=== PATIENT | male | born 1970 | race Two or more races ===

== ENCOUNTER 2017-01-20 19:52 | Inpatient (IN) | payer BC, OTHER ==
[~2017-01-20] VITALS: Ht 170.2 cm; Wt 102.9 kg
[2017-01-20] MEDS ORDERED: ROSU10TA PO (20:35)
[2017-01-20] MEDS ORDERED: ONDANSETRON 2MG/ML, 2ML IVPush ONE (21:00)
[2017-01-20] MEDS ORDERED: morphine SULFATE 10 MG/ML, 1ML IVPush PRN (21:00)
[2017-01-20] MEDS ORDERED: SODIUM CHLORIDE FLUSH 10ML SYR IVF ONE (21:00)
[2017-01-20] MEDS ORDERED: SODIUM CHLORIDE 0.9% 1,000ML IVBOLUS ONE (21:00)
[2017-01-20 21:04] LABS: HEMATOCRIT 44.7 % (39.2-51.8); WHITE BLOOD COUNT 7.5 x10^3/uL (3.4-10)
[2017-01-20 21:09] LABS: IS PT STATUS REG ER OR PRE ER? YES
[2017-01-20 21:19] LABS: ASPARTATE AMINO TRANSFERASE 25 U/L (15-37); BLOOD UREA NITROGEN 21 mg/dL (7-18)
[2017-01-20] MEDS ORDERED: morphine SULFATE 10 MG/ML, 1ML ONE (21:49)
[2017-01-20] MEDS ORDERED: ONDANSETRON 2MG/ML, 2ML ONE (21:49)
[2017-01-20] MEDS ORDERED: SODIUM CHLORIDE 0.9% 1,000 ML IV ONE (23:06)
[2017-01-20] MEDS ORDERED: SODIUM CHLORIDE FLUSH 10ML SYR IVF PRN (23:30)
[2017-01-20] MEDS ORDERED: ONDANSETRON 2MG/ML, 2ML IVPush PRN (23:30)
[2017-01-20] MEDS ORDERED: HYDROmorphone 1 MG/ML, 1ML IVPush PRN (23:30)
[2017-01-21] MEDS ORDERED: ONDANSETRON 2MG/ML, 2ML ONE (00:22)
[2017-01-21] MEDS ORDERED: HYDROmorphone 2 MG/ML, 1ML ONE (00:22)
[2017-01-21 00:49] VITALS: BP 105/69
[2017-01-21 00:51] VITALS: BP 105/69
[2017-01-21] MEDS: SODIUM CHLORIDE 0.9% 1,000 ML IV SCH ×3 (02:56→18:18)
[2017-01-21] MEDS ORDERED: morphine SULFATE 10 MG/ML, 1ML IVPush PRN (03:00)
[2017-01-21] MEDS ORDERED: ONDANSETRON 2MG/ML, 2ML IVPush PRN (03:00)
[2017-01-21 03:02] LABS: IS PT STATUS REG ER OR PRE ER? NO
[2017-01-21 06:59] VITALS: BP 93/58
[2017-01-21 09:08] LABS: IS PT STATUS REG ER OR PRE ER? NO
[2017-01-21 12:37] VITALS: BP 93/55
[2017-01-21 20:24] VITALS: BP 116/65
[2017-01-22] MEDS: SODIUM CHLORIDE 0.9% 1,000 ML IV SCH ×2 (00:56→06:45)
[2017-01-22 03:11] VITALS: BP 111/66
[2017-01-22 06:00] LABS: BLOOD UREA NITROGEN 13 mg/dL (7-18)
[2017-01-22 06:04] LABS: ASPARTATE AMINO TRANSFERASE 16 U/L (15-37)
[2017-01-22] MEDS ORDERED: REGADENOSON 0.4 MG/5 ML SYRINGE ONE (08:51)
[2017-01-22 12:50] VITALS: BP 119/77
[2017-01-22 20:20] VITALS: BP 106/66
[2017-01-23 03:17] VITALS: BP 117/77
[2017-01-23 07:22] VITALS: BP 102/68
== END 2017-01-23 12:33 | disposition home or self-care (01) | DRG 440 ==
LOC: ED 22:12 → EDIP 23:18 → 3NE 01-21 00:51
PROVIDERS: ADMIT Internal Medicine; ATTEND Internal Medicine
DX: K85.90 Acute pancreatitis without necrosis or infection, unspecified (principal); E78.5 Hyperlipidemia, unspecified; Z83.3 Family history of diabetes mellitus
CPT/HCPCS: 36415; 76700; 78452; 80053; 82150; 83690; 83735; 84478; 84484; 85025; 93005; 93017; 93306; 96361; 96374; 96375; 96376; J1170; J2405; J2785; A9502; C9898; J2270; J7030

== ENCOUNTER 2019-03-06 06:52 | Emergency (ER) | payer BC, OTHER ==
[~2019-03-06] VITALS: Ht 165.1 cm; Wt 103.8 kg
[~2019-03-06 06:52] MED LIST: ROSU10TA2 PO
[2019-03-06 07:14] VITALS: BP 126/66
[2019-03-06] MEDS ORDERED: FAMOTIDINE 20 MG TABLET ONE (07:20)
[2019-03-06] MEDS ORDERED: MAALOX/HYOSCYAMINE/LIDOCAINE 45 ML BTL ONE (07:20)
[2019-03-06] MEDS ORDERED: ONDANSETRON ODT 4 MG ONE (07:20)
[2019-03-06] MEDS ORDERED: MAALOX/HYOSCYAMINE/LIDOCAINE 45 ML BTL PO ONE (07:30)
[2019-03-06] MEDS ORDERED: FAMOTIDINE 20 MG TABLET PO ONE (07:30)
[2019-03-06] MEDS ORDERED: ONDANSETRON ODT 4 MG PO ONE (07:30)
[2019-03-06 07:54] LABS: MICROSCOPIC AUTO
--- NOTE | 2019-03-06 07:55 | NUR ---
PT REPORTS MODERATE PAIN RELIEF WITH MEDICATION, PAIN WENT FROM 10/10 TO 5/10. ULTRASOUND AT BEDSIDE AT THIS TIME. PT DENIES ANY FURTHER NEEDS OR CONCERNS, CALL LIGHT IN REACH, CONTINUES AT BEDSIDE.
[2019-03-06 07:56] LABS: CULTURE INDICATED? NO
[2019-03-06 08:01] LABS: ALBUMIN 3.7 g/dL (3.4-5.0); ANION GAP 7 mmol/L (5-15); BASOPHILS # (AUTO) 0.02 x10^3/uL (0-0.1); BASOPHILS % (AUTO) 0 % (0-1); CALCIUM 8.1 mg/dL (8.5-10.1); CHLORIDE 111 mmol/L (98-107); EOSINOPHILS # (AUTO) 0.35 x10^3/uL (0-0.4); EOSINOPHILS % (AUTO) 5 % (1-7); LYMPHOCYTES # (AUTO) 1.58 x10^3/uL (1-3.4); LYMPHOCYTES % (AUTO) 21 % (22-44); MD NO; MEAN CORPUSCULAR HEMOGLOBIN 31.5 pg (27.5-34.5); MEAN CORPUSCULAR HGB CONC 34.6 g/dL (33.2-36.2); MEAN CORPUSCULAR VOLUME 91.2 fL (81-97); MEAN PLATELET VOLUME 8.1 fL (7.4-10.4); MONOCYTES # (AUTO) 0.32 x10^3/uL (0.2-0.8); MONOCYTES % (AUTO) 4 % (2-9); NEUTROPHILS % (AUTO) 70 % (42-75); PLATELET COUNT 338 x10^3/uL (130-400); RED BLOOD COUNT 5.02 x10^6/uL (4.38-5.82)
[2019-03-06 08:07] LABS: ALANINE AMINOTRANSFERASE 39 U/L (12-78); ALKALINE PHOSPHATASE 67 U/L (45-117); BILIRUBIN,TOTAL 0.8 mg/dL (0.2-1.0); CREATININE 1.21 mg/dL (0.7-1.3); TOTAL PROTEIN 7.4 g/dL (6.4-8.2); TROPONIN I < 0.015 ng/mL (0.000-0.045)
== END 2019-03-06 09:36 | disposition home or self-care (01) ==
LOC: ED 08:00
DX: R11.2 Nausea with vomiting, unspecified (principal); R19.7 Diarrhea, unspecified; R10.13 Epigastric pain; E78.00 Pure hypercholesterolemia, unspecified
CPT/HCPCS: 36415; 76700; 80053; 81001; 83690; 84484; 85025; 93005; 99284; Q0162

== ENCOUNTER 2019-04-18 07:04 | Emergency (ER) | payer BC ==
[~2019-04-18] VITALS: Ht 162.6 cm; Wt 104.9 kg
[2019-04-18 08:00] LABS: BASOPHILS # (AUTO) 0.01 x10^3/uL (0-0.1); BASOPHILS % (AUTO) 0 % (0-1); EOSINOPHILS # (AUTO) 0.04 x10^3/uL (0-0.4); EOSINOPHILS % (AUTO) 1 % (1-7); LYMPHOCYTES # (AUTO) 1.21 x10^3/uL (1-3.4); LYMPHOCYTES % (AUTO) 28 % (22-44); MD NO; MEAN CORPUSCULAR HEMOGLOBIN 31.7 pg (27.5-34.5); MEAN CORPUSCULAR HGB CONC 34.7 g/dL (33.2-36.2); MEAN CORPUSCULAR VOLUME 91.5 fL (81-97); MEAN PLATELET VOLUME 7.8 fL (7.4-10.4); MONOCYTES # (AUTO) 0.35 x10^3/uL (0.2-0.8); MONOCYTES % (AUTO) 8 % (2-9); NEUTROPHILS # (AUTO) 2.72 x10^3/uL (1.8-6.8); NEUTROPHILS % (AUTO) 63 % (42-75); PLATELET COUNT 293 x10^3/uL (130-400); RED BLOOD COUNT 4.83 x10^6/uL (4.38-5.82)
[2019-04-18 08:09] LABS: CULTURE INDICATED? YES; MICROSCOPIC INDICATED
[2019-04-18 08:11] LABS: ALANINE AMINOTRANSFERASE 55 U/L (12-78); ALBUMIN 3.4 g/dL (3.4-5.0); ANION GAP 6 mmol/L (5-15); CALCIUM 8.4 mg/dL (8.5-10.1); CHLORIDE 108 mmol/L (98-107)
[2019-04-18 08:13] LABS: ALKALINE PHOSPHATASE 85 U/L (45-117); BILIRUBIN,TOTAL 0.7 mg/dL (0.2-1.0); CREATININE 1.25 mg/dL (0.7-1.3); TOTAL PROTEIN 7.6 g/dL (6.4-8.2)
[2019-04-18 08:19] VITALS: BP 119/74
--- NOTE | 2019-04-18 08:20 | NUR ---
PT RESTING IN [facility] [place], AWAITING LAB RESULTS. CALL LIGHT WTIHIN REACH
[2019-04-18 08:23] LABS: RAPID INFLUENZA A Negative (Negative); RAPID INFLUENZA B Negative (Negative)
== END 2019-04-18 08:54 | disposition home or self-care (01) ==
LOC: ED 07:53
DX: N30.00 Acute cystitis without hematuria (principal); E78.5 Hyperlipidemia, unspecified
CPT/HCPCS: 36415; 80053; 81001; 83605; 85025; 87040; 87077; 87086; 87186; 87400; 99283

== ENCOUNTER 2020-06-01 10:23 | Emergency (ER) | payer BC ==
[~2020-06-01] VITALS: Ht 162.6 cm; Wt 108.9 kg
--- NOTE | 2020-06-01 10:38 | NUR ---
PT STEPPING UP INTO TRUCK AT WORK AND FELT A POP IN HIS LEFT KNEE. PAIN 10/10. POSITIVE CMS TO EXT.
[2020-06-01] MEDS ORDERED: KETOROLAC 30 MG/1 ML ONE (10:44)
[2020-06-01] MEDS ORDERED: ACETAMINOPHEN 500 MG TABLET ONE (10:45)
--- NOTE | 2020-06-01 10:56 | NUR ---
PT OFF THE FLOOR TO XRAY
[2020-06-01] MEDS ORDERED: ACETAMINOPHEN 500 MG TABLET PO ONE (11:00)
[2020-06-01] MEDS ORDERED: KETOROLAC 30 MG/1 ML IM ONE (11:00)
--- NOTE | 2020-06-01 11:06 | NUR ---
PT BACK FROM XRAY
[2020-06-01 11:54] VITALS: BP 136/74
--- NOTE | 2020-06-01 11:57 | NUR ---
PT REC'VD DISCHARGE INSTRUCTIONS AND EDUCATION. PT HAD NO FURTHER QUESTIONS. PT AMBULATED TO DC AREA ON CRUTCHES.
== END 2020-06-01 11:59 | disposition home or self-care (01) ==
LOC: ED 11:58
DX: S83.92XA Sprain of unspecified site of left knee, initial encounter (principal); E78.5 Hyperlipidemia, unspecified; X50.1XXA Overexertion from prolonged static or awkward postures, initial encounter; Y93.89 Activity, other specified; Y92.69 Other specified industrial and construction area as the place of occurrence of the external cause; Y99.8 Other external cause status
CPT/HCPCS: 29505; 73564; 96372; 99283; J1885